=== PATIENT | male | born 1990 | race Caucasian/White ===

== ENCOUNTER 2022-03-25 11:24 | Emergency (ER) | payer SELFPAY ==
[2022-03-25] MEDS ORDERED: Ketorolac Tromethamine 30 MG/ML VIAL ONE (12:03)
[2022-03-25] MEDS ORDERED: Acetaminophen/Codeine 30-300mg Tablet ONE (12:03)
[2022-03-25] MEDS ORDERED: Cyclobenzaprine 10 MG TAB ONE (12:03)
== END 2022-03-25 12:08 | disposition home or self-care (01) ==
LOC: BURERS 11:24
DX: M54.42 Lumbago with sciatica, left side (principal); F17.220 Nicotine dependence, chewing tobacco, uncomplicated
CPT/HCPCS: 96372; 99283; J1885